=== PATIENT | female | born 1980 | race Two or more races ===

== ENCOUNTER → 2018-10-02 08:53 | Outpatient (CLI) | payer OTHER | END | disposition home or self-care (01) | LOC: LAB 08:53 | DX: E03.8 Other specified hypothyroidism (principal); I10 Essential (primary) hypertension; E78.2 Mixed hyperlipidemia ==

== ENCOUNTER 2018-10-09 09:42 | Outpatient (CLI) | payer OTHER | END 2018-10-09 09:56 | disposition home or self-care (01) | LOC: LAB 09:42 | DX: E03.8 Other specified hypothyroidism (principal); R10.30 Lower abdominal pain, unspecified; N30.01 Acute cystitis with hematuria ==

== ENCOUNTER 2018-11-14 12:35 | Outpatient (CLI) | payer OTHER | END 2018-11-14 12:40 | disposition home or self-care (01) | LOC: LAB 12:35 | DX: E03.8 Other specified hypothyroidism (principal); I10 Essential (primary) hypertension ==